=== PATIENT | female | born 1940 | race Caucasian/White ===

== ENCOUNTER 2018-11-29 23:39 | Inpatient (IN) ==
[2018-11-29] MEDS ORDERED: LOPRESSOR PO ONE (23:45)
[2018-11-30 00:51] LABS: BASO# 0.04 X1000 (0.0-0.2); BASO% 0.7 % (0.0-0.8); EOS# 0.06 X1000 (0.0-0.7); EOS% 1.1 % (0.0-10.0); HEMATOCRIT 38.7 % (37.0-47.0); HEMOGLOBIN 13.3 g/dL (12.0-16.0); IMM GRAN# 0.01 X1000 (0.0-0.04); IMM GRAN% 0.2 % (0.0-0.5); LYMPH# 1.79 X1000 (1.2-3.4); LYMPH% 32.7 % (20.5-51.1); MCH 31.6 PG (27-31); MCHC 34.4 g/dL (33-37); MCV 91.9 FL (81-99); MONO# 0.57 X1000 (0.11-0.59); MONO% 10.4 % (1.7-9.3); MPV 10.4 FL (7.4-10.4); NEUT% 54.9 % (42.2-75.2); PLT 163 X1000 (130-400); RBC 4.21 XMIL (4.2-5.4); RDW 12.9 % (11.5-14.5); WBC 5.47 X1000 (4.8-10.8)
[2018-11-30 01:02] LABS: URINE BACTERIA 1+ /HFP; URINE EPITHELIAL CELLS <10 /HPF (<10); URINE RBC <10 /HPF (<10); URINE SOURCE CLEAN CATCH
[2018-11-30 01:03] LABS: BILIRUBIN URINE NEGATIVE (NEGATIVE); CLARITY CLEAR (CLEAR); COLOR YELLOW; GLUCOSE URINE NEGATIVE (NEGATIVE); KETONE URINE TRACE mg/dL (NEGATIVE); LEUKOCYTES URINE 2+ (NEGATIVE)
[2018-11-30 01:04] LABS: UR AMPHETAMINES QUAL NONE DETECTED (NONE DETECT); UR BARBITUATES QUAL NONE DETECTED (NONE DETECT); UR BENZODIAZEPIN QUAL PRESUMPTIVE POSITIVE (NONE DETECT); UR CANNABINOIDS QUAL NONE DETECTED (NONE DETECT); UR COCAINE QUAL NONE DETECTED (NONE DETECT); UR METHADONE QUAL NONE DETECTED (NONE DETECT); UR METHAMPHETAMINE QUAL NONE DETECTED (NONE DETECT); UR OPIATES QUAL PRESUMPTIVE POSITIVE (NONE DETECT); UR OXYCODONE QUAL NONE DETECTED (NONE DETECT); UR PCP QUAL NONE DETECTED (NONE DETECT); UR PROPOXYPHENE QUAL NONE DETECTED (NONE DETECT); UR TCA QUAL PRESUMPTIVE POSITIVE (NONE DETECT)
[2018-11-30 01:26] LABS: AGAP 15; ALBUMIN 4.3 g/dL (3.5-5.0); ALKALINE PHOSPHATASE 102 U/L (32-104); BUN 5 mg/dL (8-22); CALCIUM 10.4 mg/dL (8.8-10.2); CHLORIDE 104 mmol/L (98-107); COSMO 286; CREATININE 0.6 mg/dL (0.5-0.9); ESTIMATED GFR > 60; GLUCOSE 125 mg/dL (70-104); GOT 22 U/L (10-30); GPT 16 U/L (10-36); MAGNESIUM 1.7 mg/dL (1.5-2.7); POTASSIUM 3.5 mmol/L (3.5-5.1); SODIUM 144 mmol/L (136-145); TCO2 26 mmol/L (25-35); TOTAL PROTEIN 6.9 g/dL (6.3-8.3)
[2018-11-30 01:53] LABS: BLOOD URINE NEGATIVE (NEGATIVE); NITRITE URINE NEGATIVE (NEGATIVE); PROTEIN URINE NEGATIVE (NEGATIVE); UROBILINOGEN URINE NORMAL
--- NOTE | 2018-11-30 01:57 | PROVIDER DOCUMENTATION ---
This chart was entered by Cristina Alford Scribe, acting as scribe for Jules Dowling MD. HPI-General Adult - General Chief Complaint: Altered Mental Status Stated Complaint: AMS/anxiety Time Seen by Provider: 11/29/18 23:46 Source: patient Allergies/Adverse Reactions: Patient Allergies Allergy/AdvReac Type Severity Reaction Status Date / Time ibuprofen [From Motrin IB] Allergy DIZZINESS Verified 11/29/18 23:46 pregabalin [From Lyrica] Allergy Unknown Verified 11/29/18 23:46 Home Medications: Home Medication List Medication Instructions Recorded Confirmed Last Taken Type Alprazolam [Xanax] 0.5 mg PO BID 05/07/18 10/05/18 Unknown History Metoprolol Tartrate [Lopressor] 100 mg PO BID 05/07/18 10/05/18 05/20/18 History Hydroxyzine Pamoate [Vistaril] 25 mg PO TID PRN #21 cap 10/05/18 Unknown Rx Loperamide HCl [Anti-Diarrhea] 2 mg PO DIRECTED #12 tab 10/05/18 Unknown Rx Meloxicam [Mobic] 15 mg PO DAILY 10/05/18 10/05/18 Unknown History Ondansetron Odt [Zofran 8Mg Odt] 8 mg PO Q8H PRN PRN #15 tab 10/05/18 Unknown Rx - History of Present Illness -Gen Adult Nature of Presenting Problems: Pt is 78/F presenting to ED via EMS from assisted living facility. Pt is said to have increased AMS for the past 3 days that is worsening today. Pt has some confusion but is oriented to self and place. She sts that she did take xanax daily but her DR stopped RX for the last 2 weeks. BP was 197/109 and glucose levels 143 per EMS Location of Pain/Injury: reports: none Pain Radiation: reports: no radiation Quality of Pain: reports: none Severity: reports: moderate Onset/Duration: reports: 3 days ago Timing: reports: still present, getting worse Context/Activities at Onset: reports: none Modifying Factors: improves with: nothing Associated Symptoms: reports: anxiety. denies: fever/chills, syncope, vomiting, weakness, trouble walking Similar Symptoms Previously?: No Recently seen or treated by another doctor?: No Review of Systems - Adult - REVIEW OF SYSTEMS - ADULT Constitutional: reports: no symptoms reported. denies: chills, fever Eyes: reports: no symptoms reported Ears, Nose, Mouth & Throat: reports: no symptoms reported Cardiovascular: denies: chest pain, edema Respiratory: reports: no symptoms reported. denies: cough, shortness of breath, wheezing Gastrointestinal: reports: no symptoms reported. denies: abdominal pain, diarrhea, nausea, vomiting Genitourinary: reports: no symptoms reported Musculoskeletal: reports: no symptoms reported Integumentary: reports: no symptoms reported Neurological: reports: no symptoms reported. denies: dizziness/vertigo, headache/migraines Psychiatric: reports: anxiety Endocrine: reports: no symptoms reported Hematologic/Lymphatic: reports: no symptoms reported Allergic/Immunologic: reports: no symptoms reported All Other Systems: Reviewed and Negative Past History - Adult - PAST MEDICAL HISTORY-ADULT Review of Records: reports: Old Records Reviewed, Nursing Assessment Review, Medications Reviewed, Social history reviewed & non-contributory. Major Childhood Illnesses: reports: denies history Cardiovascular: reports: denies history, HTN Respiratory: reports: denies history Gastrointestinal: reports: denies history Obstetrical/Gynecological: reports: denies history Genitourinary: reports: denies history Musculoskeletal: reports: denies history, arthritis Neurological: reports: denies history Psychiatric: reports: anxiety, depression Endocrine/Immune: reports: denies history, thyroid disorder Other Conditions: reports: denies history - PRIOR SURGERIES/PROCEDURES Surgical/Procedure History: reports: cholecystectomy, hysterectomy, orthopedic (extremity) (L arm, L shoulder) - IMMUNIZATION STATUS Childhood Immunizations: See Nurse Assessment Flu Vaccine: See Nurse Assessment - FAMILY HISTORY Family History: reviewed, not pertinent - SOCIAL HISTORY Smoking: denies, non-smoker Substance Use: none/never Alcohol Use Frequency: never Living Situation: care facility Physical Exam-General - PHYSICAL EXAM-ADULT Initial Vital Signs Reviewed: Yes - CONSTITUTIONAL General Appearance: appears well, alert, no apparent distress - EYES Eyes: PERRL/EOMI, pink conjunctivae - HEAD, EARS, NOSE, MOUTH & THROAT HENMT: normocephalic/atraumatic, moist mucous membranes, normal ENT inspection, TMs normal, pharynx normal - NECK Neck: non-tender, full range of motion, supple, normal inspection - RESPIRATORY Respiratory: chest non-tender, lungs clear, normal breath sounds - CARDIOVASCULAR Cardiovascular: regular rate, rhythm - GASTROINTESTINAL (ABDOMEN) Abdominal Exam: normal bowel sounds, non tender, soft - LYMPHATIC Lymphatic: no adenopathy - MUSCULOSKELETAL Back Exam: normal inspection, no CVA tenderness, no vertebral tenderness Extremity: normal range of motion, non-tender, normal gait, normal inspection - SKIN Integumentary: normal color, warm/dry - NEUROLOGIC Neurologic: grossly normal - PSYCHIATRIC Psych/Mental Status: normal mood/affect, normal thought content, normal thought process, other (pt is oriented to self and place but not time.). negative: o riented x 3 Progress - PLAN OF CARE/RESULTS Progress/Plan/Lab Results: Vital Signs - 8 hr 11/29/18 23:39 Temperature 98.1 F Pulse Rate 114 H Respiratory Rate 16 Blood Pressure 198/113 O2 Sat by Pulse Oximetry 96 Result Diagrams: 11/30/18 00:02 11/30/18 00:02 - EKG 1 Time of EKG reading by physician:: 23:57 EKG Read and Signed by:: Julse Dowling EKG Interpretation (*Must complete 3 of following elements*): Abnormal (Sinus tachycardia, Left bundle branch block, Abnormal ECG) Rate: 110 Rhythm: sinus tachycardia [place]: normal DC Interval: normal - CT/MRI 1 CT Study: Head Impression: Abnormal (No acute intracranial hemorrhage or process. Age-related cerebral volume loss. Bilateral white matter disease, Likely ischemic microvascular in nature) Departure - Departure Date of Disposition Decision: 11/30/18 Time of Disposition Decision: 01:56 DIAGNOSIS: Altered mental status, UTI (urinary tract infection) Disposition: ADMITTED INPATIENT 09 Certified Medical Emergency: Emergent Condition: Stable Referrals and Follow-Ups: None,PCP [Primary Care Provider] - - Critical Care Note This patient required my direct & personal management of CC.: No Attestation - Physician/ MARIA L Attestation Patient care was provided by Advanced Practice Provider:: No The physician spent face to face time with patient:: Yes Advanced Practice Provider documentation review:: Supervising physician onsite and consulted in the evaluation and care of this patient. The physician did have a face to face encounter with the patient. This chart was documented by the indicated scribe, (Cristina Alford Scribe) and accurately reflects the services I performed and decisions made by me, Jules Dowling MD, as attested by the provider's signature.
[2018-11-30] MEDS ORDERED: TYLENOL PO PRN ×2 (02:49→08:33)
[2018-11-30] MEDS ORDERED: STERILE WATER INJ. INJ PRN (04:31)
[2018-11-30] MEDS ORDERED: GEODON IM PRN (04:31)
[2018-11-30] MEDS: BENADRYL IV PRN (04:59)
[2018-11-30] MEDS: ATIVAN IV PRN (04:59)
[2018-11-30] MEDS: NS 1,000 ML IV ONE ×2 (06:34→10:57)
[2018-11-30] MEDS ORDERED: ZOFRAN IV PRN (08:33)
--- NOTE | 2018-11-30 09:06 | Diag Imaging Result Doc PS360 ---
EXAM: CHEST-PORTABLE INDICATION: AMS TECHNIQUE: One view COMPARISON: 05/21/2018 FINDINGS: The lungs are grossly clear. There is no discrete pleural fluid collection or pneumothorax. The cardiomediastinal silhouette and central vasculature are grossly unremarkable. IMPRESSION: No evidence of acute pathology by plain radiograph. Electronically signed by Stevan Zafar 11/30/2018 9:03 AM
--- NOTE | 2018-11-30 09:26 | Diag Imaging Result Doc PS360 ---
EXAM: CT HEAD W/O CONTRAST INDICATION: AMS TECHNIQUE: This exam was performed using automated exposure control, adjustment of mA or kV according to patient size, and/or use of iterative reconstruction technique. COMPARISON: None. FINDINGS: There is age-appropriate diffuse brain atrophy. There is patchy low attenuation in the periventricular and subcortical white matter suggesting moderate microangiopathy. There is no definite acute infarct given the limited sensitivity of CT versus MRI. There is no discrete intracranial mass, mass effect, or intracranial hemorrhage. The surrounding soft tissues and bony structures are essentially unremarkable. IMPRESSION: Chronic appearing white matter changes as described. No evidence of acute intracranial pathology by CT. Electronically signed by Stevan Zafar 11/30/2018 9:24 AM
[2018-11-30] MEDS ORDERED: NS 50 ML ONE (10:55)
[2018-11-30] MEDS: ROCEPHIN 1 GM in NS 50 ML IV SCH (10:55)
[2018-11-30 12:38] LABS: FREE T4 0.9 ng/dL (0.93-1.70); TSH 2.6 uIUmL (0.27-4.20)
--- NOTE | 2018-11-30 15:16 | HISTORY AND PHYSICAL ---
CHIEF COMPLAINT: Altered mental status, agitation. HISTORY OF PRESENT ILLNESS: This is a 78-year-old female with a prior history of hypertension, arthritis, thyroid disease, as well as claustrophobia and anxiety. She presented via EMS from an assisted living facility having increasing altered mental status over the past 3 days. She has had some confusion at times. She is oriented to herself and place. At times, she is combative, scratching and hitting at the nursing staff. She does pull at her lines and her IV catheters. There are no family members present, so history of the patient and recent events are taken from the old records, as well as the ER record. EMS reported that the patient has had 3 days of altered mental status. The patient told the emergency room that she was being weaned off of her Xanax, stating that her doctor stopped her prescription 2 weeks prior, although in review of her pharmacy records, she received 60.5 Xanax on November 15. She is to take these twice a day. PAST MEDICAL HISTORY: Hypertension, osteoarthritis, anxiety with claustrophobia and depression, and thyroid trouble. PAST SURGICAL HISTORY: Cholecystectomy, partial hysterectomy, neck surgery. SOCIAL HISTORY: She does live at a assisted living facility. She denies alcohol, tobacco, or illicit drug use, and none is listed on her prior visits from the records. ALLERGIES: Lyrica, which causes unknown reaction and ibuprofen, which causes dizziness. HOME MEDICATIONS: A list will be obtained by the nursing staff and, once verified, will review and restart it as appropriate. REVIEW OF SYSTEMS: Review of systems is really unable to obtain from the patient at this time as she is not consistently cooperative. PHYSICAL EXAMINATION: GENERAL: This is a 78-year-old female, who is lying in the bed in no distress. VITAL SIGNS: Blood pressure is 154/90 with a heart rate of 83, respirations 18, temperature 98.3 degrees oral with room air saturations 96 to 100 percent. EYES: Pupils are equal, round, react to light. EOMS are intact. Sclerae are anicteric. HENT: Head is normocephalic, atraumatic. Mucous membranes are moist. NECK: Supple with trachea midline. CARDIOVASCULAR: Regular rate and rhythm. S1 and S2 appreciated. She has no lower extremity edema. Peripheral pulses are palpable x4 extremities. PULMONARY: Breath sounds are clear with no increased work of breathing noted. Chest rises and falls symmetric with respiration. GASTROINTESTINAL: Abdomen is soft, nontender, nondistended with bowel sounds in all 4 quadrants. SKIN: Warm and dry with good turgor. NEUROLOGIC: She is alert. She is oriented to self and hospital, although not specific hospital nor time. She intermittently follows commands. She does move extremities at random. She does withdraw from pain. LABS: WBC is 5.4 with a hemoglobin 13.3, hematocrit 38.7, and platelets of 163. Sodium 144, potassium 3.5, BUN 5, creatinine 0.6 with a glucose of 125. Urinalysis is essentially negative. Urine drug screen is presumptive positive for opiates tricyclics and benzodiazepines. Blood culture and urine culture pending. X-RAYS: 1. Chest x-ray revealed no evidence of acute pathology by plain radiograph. 2. CT of the head revealed chronic-appearing white matter changes as described. No evidence of acute intracranial pathology by CT. There is age-appropriate diffuse brain atrophy. There is patchy low attenuation in the periventricular and subcortical white matter suggesting moderate microangiopathy. There are no definite acute infarct given the limited sensitivity of CT versus MRI. There is no discrete intracranial mass, mass effect, or intracranial hemorrhage. ASSESSMENT AND PLAN: 1. Altered mental status. We will continue with neuro checks. Cultures are pending. Restraints, as the patient was pulling out intravenous lines and discontinue monitor. These will be per protocol. 2. Gastroesophageal reflux disease. We will continue Carafate 1 gram four times daily, as well as omeprazole 40 daily. 3. History of anxiety with claustrophobia, depression. Will start her hydroxyzine and monitor the patient's mental status. 4. Vitamin D deficiency. Aware. 5. History of osteoarthritis. 6. Thyroid trouble. We will check a thyroid stimulating hormone and free T4. Repeat a complete blood count with differential, as well as a comprehensive metabolic panel in the morning. 7. Urinary tract infection. She was given Rocephin in the emergency room. We will continue this and further antibiotics will be culture driven. We will continue with intravenous gentle hydration. Further treatments pending hospital course. Dictated by MANDO Lopes for Josh Braden MD This chart was documented by, MANDO Lopes and accurately reflects the services performed, treatment plan and medical decisions as attested by the providers signature Josh Braden MD. cc: MANDO Lopes MD
[2018-11-30] MEDS: ATARAX PO SCH ×2 (17:25→18:48)
[2018-11-30] MEDS: CARAFATE LIQUID PO SCH ×2 (17:26→19:39)
[2018-11-30] MEDS: DESYREL PO SCH (21:08)
[2018-12-01] MEDS: CARAFATE LIQUID PO SCH ×5 (01:03→19:42)
--- NOTE | 2018-12-01 01:46 | HISTORY AND PHYSICAL ---
ADDENDUM: Patient seen and examined by myself. Full note dictated and discussed with nurse practitioner. Patient presented from assisted living with altered mental status. Currently is confused, disoriented. We will admit her to the hospital and continue workup. Certainly, this could be from a urinary tract infection. CT was essentially negative. We will continue to follow. cc: Josh Braden MD
[2018-12-01] MEDS: PRILOSEC PO SCH (06:00)
[2018-12-01 06:17] LABS: BASO# 0.04 X1000 (0.0-0.2); BASO% 0.7 % (0.0-0.8); EOS# 0.16 X1000 (0.0-0.7); EOS% 2.7 % (0.0-10.0); HEMATOCRIT 38.9 % (37.0-47.0); HEMOGLOBIN 12.8 g/dL (12.0-16.0); IMM GRAN# 0.01 X1000 (0.0-0.04); IMM GRAN% 0.2 % (0.0-0.5); LYMPH# 2.41 X1000 (1.2-3.4); MCH 30.5 PG (27-31); MCHC 32.9 g/dL (33-37); MCV 92.8 FL (81-99); MONO# 0.68 X1000 (0.11-0.59); MONO% 11.3 % (1.7-9.3); MPV 11.2 FL (7.4-10.4); NEUT# 2.72 X1000 (1.4-6.5); NEUT% 45.1 % (42.2-75.2); PLT 173 X1000 (130-400); RBC 4.19 XMIL (4.2-5.4); RDW 13.3 % (11.5-14.5); WBC 6.02 X1000 (4.8-10.8)
[2018-12-01 06:29] LABS: AGAP 12; ALBUMIN 3.8 g/dL (3.5-5.0); ALKALINE PHOSPHATASE 88 U/L (32-104); BUN 5 mg/dL (8-22); CALCIUM 9.7 mg/dL (8.8-10.2); CHLORIDE 110 mmol/L (98-107); COSMO 287; CREATININE 0.6 mg/dL (0.5-0.9); ESTIMATED GFR > 60; GLUCOSE 121 mg/dL (70-104); GOT 21 U/L (10-30); GPT 13 U/L (10-36); POTASSIUM 3.4 mmol/L (3.5-5.1); SODIUM 145 mmol/L (136-145); TCO2 24 mmol/L (25-35); TOTAL PROTEIN 6.3 g/dL (6.3-8.3)
[2018-12-01] MEDS: ATARAX PO SCH ×4 (09:39→17:26)
[2018-12-01] MEDS: ROCEPHIN 1 GM in NS 50 ML IV SCH (09:39)
--- NOTE | 2018-12-01 15:49 | PROGRESS NOTE ---
DATE: 12/01/2018 SUBJECTIVE: Patient is much more awake, alert this morning. She states she has no complaints. Notes that she does not really remember yesterday. Denies any fevers or chills. Denies any GI or issues currently. OBJECTIVE: Vital signs: Temperature 97.6, pulse 89, respiratory 20, BP 151/72. General: Patient is awake, very pleasant to talk with. She is oriented to person and place. Knows the year. She has no recall of what made her come to the hospital. She does remember being confused. HEENT: Normocephalic. Neck: Supple. CV: Regular rate. Chest: Clear, nonlabored. Abdomen: Soft, nondistended. Extremities: Moves all extremities. ASSESSMENT: 1. Acute delirium. Appears resolved, although patient does appear to have some chronic baseline dementia. 2. Reflux. 3. Presumed urinary tract infection. 4. History of anxiety and depression. PLAN: We will continue patient in the hospital today. We will continue until blood and urine cultures are negative. Hopefully home over the next few days. cc: Josh Braden MD
[2018-12-01] MEDS: DESYREL PO SCH (22:12)
[2018-12-02] MEDS ORDERED: APRESOLINE IV ONE (02:11)
[2018-12-02] MEDS: CARAFATE LIQUID PO SCH ×5 (02:12→19:25)
[2018-12-02] MEDS: BENADRYL IV PRN ×3 (03:27→23:29)
[2018-12-02] MEDS: ATIVAN IV PRN (03:28)
[2018-12-02 06:03] LABS: BASO# 0.06 X1000 (0.0-0.2); BASO% 0.6 % (0.0-0.8); EOS# 0.11 X1000 (0.0-0.7); HEMATOCRIT 44.2 % (37.0-47.0); HEMOGLOBIN 14.8 g/dL (12.0-16.0); IMM GRAN# 0.02 X1000 (0.0-0.04); IMM GRAN% 0.2 % (0.0-0.5); LYMPH# 3.81 X1000 (1.2-3.4); MCH 30.5 PG (27-31); MCHC 33.5 g/dL (33-37); MCV 90.9 FL (81-99); MONO# 1.04 X1000 (0.11-0.59); MONO% 9.8 % (1.7-9.3); NEUT# 5.53 X1000 (1.4-6.5); NEUT% 52.4 % (42.2-75.2); PLT 225 X1000 (130-400); RBC 4.86 XMIL (4.2-5.4); RDW 13.2 % (11.5-14.5); WBC 10.57 X1000 (4.8-10.8)
[2018-12-02] MEDS: PRILOSEC PO SCH (06:04)
[2018-12-02] MEDS: ROCEPHIN 1 GM in NS 50 ML IV SCH (08:38)
[2018-12-02] MEDS: ATARAX PO SCH ×5 (08:39→17:03)
--- NOTE | 2018-12-02 10:55 | EKG Report ---
Test Performed on : 11/29/2018 11:55:21 PM Test Reason : ER Blood Pressure : / mmHG Vent. Rate : 110 BPM Atrial Rate : 110 BPM P-R Int : 180 ms QRS Dur : 122 ms QT Int : 392 ms P-R-T Axes : 025 -04 146 degrees QTc Int : 530 ms Sinus tachycardia. Left bundle branch block Abnormal ECG When compared with ECG of 05-OCT-2018 15:40, (Unconfirmed) fusion complexes are no longer present Vent. rate has increased BY 41 BPM T wave inversion less evident in Inferior leads QT has lengthened Unconfirmed Result
[2018-12-02] MEDS: LABETALOL IV PRN (13:57)
--- NOTE | 2018-12-02 14:35 | Diag Imaging Result Doc PS360 ---
EXAM: CT HEAD W/O CONTRAST HISTORY: encephalopathy TECHNIQUE: CT head without contrast COMPARISON: 11/30/2018 FINDINGS: No parenchymal hemorrhage. No epidural or subdural hematoma. No subarachnoid hemorrhage. There are mild chronic microvascular ischemic changes similar to the prior study. No mass identified on this noncontrasted exam. No hydrocephalus. No sinus opacification. IMPRESSION: No hemorrhage. Chronic microvascular ischemic changes. This exam was performed using automated exposure control, adjustment of mA or kV according to patient size, and/or use of iterative reconstruction technique. Electronically signed by Cesar Claros 12/02/2018 2:33 PM
[2018-12-02] MEDS ORDERED: LOPRESSOR PO SCH (14:45)
--- NOTE | 2018-12-02 15:13 | PROGRESS NOTE ---
DATE: 12/02/2018 SUBJECTIVE: The patient is very confused, but I am not entirely certain she is not confused because she has got some underlying dementia. She is not sure. She does realize she is in assisted living because she lives with the "girls", but apart from that she has really nonfocal exam. This afternoon she developed an episode of tachycardia and hypertension, but she has not been getting any of her regular medications, which most notably is metoprolol. OBJECTIVE: Cardiovascular: Regular rate and rhythm. Pulmonary: Bilateral breath sounds. Clear to auscultation. GI: Soft, nontender, and nondistended. Bowel sounds are positive. LABORATORY DATA: White count 10, hemoglobin and hematocrit 14 and 44, and platelets 225,000. Her TSH is normal. Her free T4 is just a hair low. She is not on any thyroid medication, and may add a little dose of Synthroid. I will hold off and repeat. ASSESSMENT AND PLAN: 1. Really not sure what is causing her confusion, but I have of a consideration that this is just progression in dementia more than any particular issue. We will observe and anticipate discharge tomorrow. If she is not improved, I think we will have to get a psychiatric evaluation which we will proceed with. 2. Hypertension. We will work on trying to get her level under control. cc: Ezequiel Anton MD
--- NOTE | 2018-12-02 15:15 | EKG Report ---
Test Performed on : 12/02/2018 1:52:20 PM Test Reason : cp Blood Pressure : / mmHG Vent. Rate : 152 BPM Atrial Rate : 152 BPM P-R Int : 112 ms QRS Dur : 122 ms QT Int : 320 ms P-R-T Axes : 003 020 175 degrees QTc Int : 508 ms Sinus tachycardia. Left bundle branch block Abnormal ECG When compared with ECG of 29-NOV-2018 23:55, (Unconfirmed) ST now depressed in Inferior leads ST now depressed in Anterior leads Unconfirmed Result
[2018-12-02] MEDS ORDERED: ATIVAN IV PRN (18:37)
[2018-12-02] MEDS: HALDOL IV PRN ×2 (18:38→23:30)
[2018-12-02] MEDS: DESYREL PO SCH (20:15)
[2018-12-03] MEDS: CARAFATE LIQUID PO SCH ×4 (03:05→19:38)
[2018-12-03] MEDS ORDERED: LABETALOL IV PRN (06:03)
[2018-12-03] MEDS ORDERED: CATAPRES-TTS-1 TD ONE (06:05)
[2018-12-03] MEDS: LABETALOL IV PRN (06:13)
[2018-12-03] MEDS: PRILOSEC PO SCH (06:16)
[2018-12-03 07:36] LABS: ALBUMIN 4.2 g/dL (3.5-5.0); DIRECT BILIRUBIN 0.2 mg/dL (0.00-0.20); TOTAL BILIRUBIN 0.8 mg/dL (0.20-1.00); TOTAL PROTEIN 6.3 g/dL (6.3-8.3)
[2018-12-03] MEDS: ROCEPHIN 1 GM in NS 50 ML IV SCH (11:04)
[2018-12-03] MEDS: MOBIC PO SCH (11:07)
[2018-12-03] MEDS: TOPROL XL PO SCH (11:07)
[2018-12-03] MEDS: ATARAX PO SCH ×3 (11:07→19:05)
[2018-12-03] MEDS ORDERED: ATIVAN IM PRN (12:26)
[2018-12-03] MEDS ORDERED: HALDOL IM PRN (12:27)
[2018-12-03] MEDS ORDERED: ZOFRAN IV PRN (12:27)
[2018-12-03] MEDS ORDERED: ZOFRAN ODT PO PRN (12:29)
--- NOTE | 2018-12-03 12:49 | PROGRESS NOTE ---
DATE: 12/03/2018 SUBJECTIVE: The patient has no major complaints. OBJECTIVE: Vital Signs: Blood pressure is 197/88, heart rate of 115, respiratory rate 18, temperature 97.5 degrees, satting 98% on room air. Cardiovascular: Regular rate and rhythm. Pulmonary: Bilateral breath sounds. Clear to auscultation. GI: Soft, nontender, nondistended. Bowel sounds were positive. LABORATORY DATA: I do not have any new data today, except hepatic function is normal. B 12 is normal. Vitamin D is pending. RPR is nonreactive. PROBLEM LIST: 1. Encephalopathy, uncertain what her baseline is, it is unclear. I think she has got underlying dementia. There certainly could be a component of withdrawal, but it is unclear to me. I think she was back on her medication before this was discontinued, so I do not think that this is truly withdrawal. She seems better today, but then last night she describes that she had wires placed in her body and she would refuse to go back to her room. She is very confused, very agitated, with clear-cut behavioral disturbance, and I think she has got some underlying dementia, but [facility] did not feel she qualified for inpatient treatment. 2. She does not appear to have any major medical issues, but she does have uncontrolled hypertension. We will control her hypertension currently. I am going to start her on some Seroquel at night to help with agitation. I have initiated Norvasc. She is already on Toprol. DISPOSITION: She is not physically that weak. We will get a PT evaluation, but I do not know if she is stable enough to live on her own at this point because she gets very agitated. So, I am not sure what our discharge plan is. We will have to discuss with secondary social studies teacher and family and see what available options we have. cc: Ezequiel Anton MD
[2018-12-03] MEDS: NORVASC PO SCH (14:27)
[2018-12-03 14:57] LABS: VITAMIN D 25 HYDROXY 19.8 NG/DL
[2018-12-03] MEDS ORDERED: SEROQUEL PO SCH (21:00)
[2018-12-03] MEDS: DESYREL PO SCH (21:26)
[2018-12-04] MEDS: CARAFATE LIQUID PO SCH ×3 (01:06→14:01)
[2018-12-04] MEDS: PRILOSEC PO SCH (06:03)
[2018-12-04] MEDS: MOBIC PO SCH (09:25)
[2018-12-04] MEDS: NORVASC PO SCH (09:25)
[2018-12-04] MEDS: TOPROL XL PO SCH (09:25)
[2018-12-04] MEDS: ATARAX PO SCH ×3 (09:25→17:37)
--- NOTE | 2018-12-04 15:20 | PROGRESS NOTE ---
DATE: 12/04/2018 SUBJECTIVE: 1. She has not having any further behavioral issues. She seems alert, oriented today. Documentation we found, though, suggests that she does have Alzheimer's dementia. This was noted by Dr. Do about a year ago, and she had behavioral disturbance then, so I do think she has underlying dementia, although she is fairly highly functioning. 2. She is probably very compensated. That being said, she seems to be alert, oriented. She has not had any further behavioral issues. OBJECTIVE: Blood pressure 146/72, heart rate 76, respiratory rate 18, temperature 98.2 degrees, 96% on room air. She seems to be doing okay. Nonfocal neurological exam. Tonio Givens is going to re-evaluate her, but I think she is not going to qualify since she is improved. I did start her on some Seroquel and Aricept, which I would add those medications as an outpatient. I do not recommend that she continue Xanax because I think she has issues with overtaking that medicine, and it may be causing worsening confusion. We will initiate Seroquel at night and Aricept daily, and I will anticipate discharge if she does not qualify for Geriatric Psychiatric, which I do not think she will, and we will set her up with outpatient psychiatric. Anticipate discharge hopefully later today pending Tonio Givens consult. cc: Ezequiel Anton MD
[2018-12-04 18:30] VITALS: BP 157/72
[2018-12-04] MEDS ORDERED: ARICEPT PO SCH (21:00)
--- NOTE | 2018-12-04 22:03 | DISCHARGE SUMMARY ---
ADMISSION DATE: 11/30/2018 DISCHARGE DATE: 12/04/2018 PRIMARY CARE PHYSICIAN: Listed as none. ADMISSION DIAGNOSES: 1. Altered mental status. 2. Gastroesophageal reflux disease. 3. History of anxiety with claustrophobia and depression. 4. Vitamin D deficiency. 5. History of osteoarthritis. 6. Urinary tract infection. DISCHARGE DIAGNOSES: 1. Altered mental status with underlying dementia with behavioral disturbances. 2. Urinary tract infection with urine culture with no growth. 3. Gastroesophageal reflux disease. 4. History of anxiety with claustrophobia and depression. SUMMARY OF FINDINGS: This is a 78-year-old female who presented via EMS from an assisted living facility, having increased altered mental status for 3 days. At times had been combative, scratching and hitting at the nursing staff, with increased confusion. The patient told the emergency room that she was being weaned off her Xanax, stating that her doctor stopped her prescription 2 weeks prior, although in review of her pharmacy records, she received sixty 0.5 mg Xanax on November and was taking these twice daily. She is was placed on IV antibiotics for her urinary tract infection, but again her culture grew out no growth. We did consult [facility]. At first she was denied, but they have reevaluated her and have agreed to take her for inpatient psychiatric treatment, so she is being discharged to the [facility]. She will be on donepezil 5 mg p.o. at bedtime #30 with no refills, quetiapine 25 mg p.o. at bedtime #30 with 1 refill, and further orders after her psychiatric evaluation. Dictated by MANDO Carreon for Ezequiel Anton MD cc: MANDO Carreon MD Nidhi Jindal, MD
== END 2018-12-04 20:25 | DRG 57 ==
LOC: P.ED 23:39 → SUATTDRO 11-30 02:40 → P.MEDSURG 11-30 02:40
PROVIDERS: ATTEND Internal Medicine
CPT/HCPCS: 36415; 70450; 71010; 71045; 80053; 80076; 80104; 80301; 80305; 80307; 80320; 81001; 82055; 82140; 82306; 82607; 82746; 82948; 83605; 83735; 84439; 84443; 84484; 85025; 86140; 86592; 87040; 87088; 93005; 97163; 99285; A9270; G0431; G0434; G0477; G0480; G6040; J0360; J0696; J1200; J1630; J2060; J3486; J7030; XXXXX

== ENCOUNTER 2019-01-04 15:58 | Inpatient (IN) ==
[2019-01-04] MEDS ORDERED: SODIUM CHLORIDE 0.9% INJ ONE (16:44)
[2019-01-04] MEDS ORDERED: PHENERGAN IV ONE (16:44)
[2019-01-04] MEDS ORDERED: NS 1,000 ML IV ONE ×2 (16:44→22:27)
[2019-01-04 17:22] LABS: BASO# 0.02 X1000 (0.0-0.2); BASO% 0.2 % (0.0-0.8); EOS# 0.01 X1000 (0.0-0.7); EOS% 0.1 % (0.0-10.0); HEMATOCRIT 39.5 % (37.0-47.0); HEMOGLOBIN 13.9 g/dL (12.0-16.0); LYMPH# 1.53 X1000 (1.2-3.4); LYMPH% 18.1 % (20.5-51.1); MCH 30.9 PG (27-31); MCHC 35.2 g/dL (33-37); MCV 87.8 FL (81-99); MONO# 0.62 X1000 (0.11-0.59); MONO% 7.3 % (1.7-9.3); MPV 11.1 FL (7.4-10.4); NEUT# 6.29 X1000 (1.4-6.5); NEUT% 74.3 % (42.2-75.2); PLT 212 X1000 (130-400); RDW 12.3 % (11.5-14.5); WBC 8.47 X1000 (4.8-10.8)
[2019-01-04 17:47] LABS: ESTIMATED GFR > 60
[2019-01-04 17:48] LABS: AGAP 15; ALB/GLOB RATIO 1.8; ALBUMIN 4.4 g/dL (3.5-5.0); ALKALINE PHOSPHATASE 96 U/L (32-104); AMYLASE 41 U/L (20-200); BUN 11 mg/dL (8-22); CALCIUM 10.7 mg/dL (8.8-10.2); CHLORIDE 89 mmol/L (98-107); COSMO 256; CREATININE 0.6 mg/dL (0.5-0.9); GLUCOSE 126 mg/dL (70-104); GOT 16 U/L (10-30); GPT 9 U/L (10-36); LIPASE 20 U/L (13-60); POTASSIUM 3.2 mmol/L (3.5-5.1); SODIUM 127 mmol/L (136-145); TCO2 23 mmol/L (25-35); TOTAL BILIRUBIN 0.97 mg/dL (0.20-1.00); TOTAL PROTEIN 6.9 g/dL (6.3-8.3)
[2019-01-04] MEDS ORDERED: ZOFRAN IV ONE (20:21)
--- NOTE | 2019-01-04 20:48 | HISTORY AND PHYSICAL ---
ADDENDUM: This is an addendum to history and physical dated 01/04/2019. The patient complains of persistent subacute diarrhea with persistent nausea and vomiting. This is her third visit to the hospital and during this month. She states that she has a lot of diarrhea which wakes her up at night, and persistent vomiting regardless of whether she eats or not. When I asked her about medication, she has been prescribed Aricept early this month before the onset of all these symptoms. She said she was prescribed it because they told her she had "dementia," which she disputes. Other than that, the patient does admit to some very vague abdominal pain, but no fever, chills or genitourinary complaints. CT scan done today is grossly normal, with no acute findings. My recommendations for this patient would be to discontinue all unnecessary medications, most especially Aricept which can cause diarrhea in and of itself, and see if her diarrhea resolves. I do not have an official medication reconciliation list, but I would surmise that she should be maintained on the ones I see here, i.e., Xanax, Norvasc, Toprol and omeprazole. We will withhold the rest of the medications to see if her symptoms improve. If they do improve, then we can introduce one medication at a time to see if and when her diarrhea or nausea and vomiting recurs. cc: Rick Ramos MD
--- NOTE | 2019-01-04 20:57 | HISTORY AND PHYSICAL ---
PRIMARY CARE PROVIDERS: Kaila Chandler. CHIEF COMPLAINT: Nausea, vomiting and diarrhea. HPI: Ms. Macdonald is a 78-year-old female who carries past medical history of hypertension, osteoarthritis, anxiety with claustrophobia, depression and thyroid issues who reports that she has been to the ED for the past 3 days for nausea, vomiting, and diarrhea. On the she had abdominal and pelvis CT that showed trace nonspecific free fluid in the pelvis, mild to moderate sigmoid colonic diverticulosis but no diverticulitis. Reported to the ED again today with intractable nausea, vomiting and diarrhea with complaints of abdominal cramping in the right upper quadrant that has moved down to her right lower quadrant. She states she has felt sluggish. She has thrown up 4 times today and had 6 episodes of diarrhea. There was no blood in the diarrhea. She denies being around any sick contacts or eating anything out of the ordinary and has really not had an appetite over the last few days. She did have electrolyte abnormalities with mild hyponatremia and mild hyperkalemia with a normal amylase and lipase. We will admit her overnight for observation for gastroenteritis viral, give her IV fluids and replenish her potassium and keep an eye on her electrolytes and provide her with antiemetics. She denies any chest pain, fever, chills, cough, headache, palpitations. PAST MEDICAL HISTORY: 1. Hypertension. 2. Osteoarthritis. 3. Anxiety with claustrophobia and depression. 4. Thyroid issues. PAST SURGICAL HISTORY: 1. Cholecystectomy. 2. Partial hysterectomy. 3. Neck surgery. SOCIAL HISTORY: She lives at [facility]. No alcohol, tobacco, or illicit drug use. ALLERGIES: To Lyrica, ibuprofen. HOME MEDICATIONS: Have not been verified. REVIEW OF SYSTEMS: A 14 point review of systems completely negative except for those mentioned in HPI. PHYSICAL EXAMINATION: VITAL SIGNS: Temperature is 98.5 degrees, heart rate 65, respirations 16, blood pressure is 199/81, O2 is 99% on room air. GENERAL: Ms. Macdonald is a 78-year-old female who is sitting up on the stretcher in no acute distress who is not ill-appearing. HEENT: Atraumatic, normocephalic. ABE. NECK: Supple. Trachea midline. CARDIOVASCULAR: S1, S2 appreciated. No murmurs, gallops, rubs noted. RESPIRATORY: Lung sounds clear bilaterally. GI: Soft, nontender, nondistended. Positive bowel sounds 4 quads. SKIN: Was warm, dry and intact. EXTREMITIES: No lower extremity edema. Bilateral pedal pulses are palpable. NEURO: She is alert, oriented, answered questions appropriately. Follow commands. DIAGNOSTIC DATA: None from today however on 01/03/[address] that showed trace nonspecific free fluid in the pelvis, mild to moderate sigmoid colonic diverticulosis but no definite sign of diverticulitis and a chest x-ray done on 01/01 that showed no acute disease or change from prior. LABORATORY DATA: White count 8, hemoglobin and hematocrit 13 and 39, platelet count is 212,000. Sodium 127, potassium 3.2, chloride 89, carbon dioxide 23, BUN 11, creatinine 0.6, blood glucose is 126, magnesium 1.7, AST 16, ALT 9, alk phos 96, amylase 41, lipase 20. ASSESSMENT AND PLAN: 1. Viral Gastroenteritis with intractable nausea, vomiting and diarrhea. The patient has been to the emergency department for 3 days in a row now. She denies being around any sick contacts or eating any food out of the ordinary or food she thought was bad. We will continue with IV hydration, place her in observation status, replenish her electrolytes, initiate her on a clear liquid diet and advanced as tolerated, will check stool studies. 2. Electrolyte imbalances with hyponatremia and hypokalemia. We will replenish per protocol. 3. Hypertension. Will continue p.o. medications when verified. 4. Osteoarthritis. 5. Anxiety with claustrophobia. 6. Depression. 7. Further recommendation to follow physician evaluation, laboratory and diagnostic data. Dictated by MANDO Roberson for Rick Ramos MD cc: Kaila LUIS
[2019-01-04] MEDS ORDERED: ZOFRAN IV PRN (22:27)
[2019-01-04] MEDS ORDERED: POTASSIUM CHLORIDE 20 MEQ/SWI 20 MEQ/100 ML IVPB IV ONE (22:27)
[2019-01-04] MEDS: HEPARIN SUBQ SCH (23:09)
[2019-01-04] MEDS ORDERED: BENTYL PO PRN (23:42)
[2019-01-05] MEDS: ULTRAM PO SCH ×2 (00:05→20:38)
[2019-01-05] MEDS: XANAX PO SCH ×3 (00:06→20:37)
[2019-01-05] MEDS: LOPRESSOR PO SCH ×3 (00:06→20:38)
[2019-01-05 05:33] LABS: BASO# 0.04 X1000 (0.0-0.2); BASO% 0.5 % (0.0-0.8); EOS# 0.06 X1000 (0.0-0.7); EOS% 0.8 % (0.0-10.0); HEMATOCRIT 36.6 % (37.0-47.0); HEMOGLOBIN 12.6 g/dL (12.0-16.0); LYMPH# 3.14 X1000 (1.2-3.4); LYMPH% 39.3 % (20.5-51.1); MCH 30.8 PG (27-31); MCHC 34.4 g/dL (33-37); MCV 89.5 FL (81-99); MONO# 0.96 X1000 (0.11-0.59); MPV 10.9 FL (7.4-10.4); NEUT% 47.4 % (42.2-75.2); PLT 200 X1000 (130-400); RBC 4.09 XMIL (4.2-5.4); RDW 12.7 % (11.5-14.5)
[2019-01-05 06:35] LABS: AGAP 10; ALB/GLOB RATIO 1.8; ALBUMIN 3.8 g/dL (3.5-5.0); ALKALINE PHOSPHATASE 86 U/L (32-104); BUN 7 mg/dL (8-22); CALCIUM 10.2 mg/dL (8.8-10.2); CHLORIDE 103 mmol/L (98-107); COSMO 274; CREATININE 0.7 mg/dL (0.5-0.9); ESTIMATED GFR > 60; GLUCOSE 98 mg/dL (70-104); GOT 13 U/L (10-30); GPT 8 U/L (10-36); MAGNESIUM 1.7 mg/dL (1.5-2.7); POTASSIUM 3.4 mmol/L (3.5-5.1); SODIUM 138 mmol/L (136-145); TCO2 25 mmol/L (25-35); TOTAL BILIRUBIN 0.82 mg/dL (0.20-1.00); TOTAL PROTEIN 5.9 g/dL (6.3-8.3)
[2019-01-05 06:50] LABS: URINE SOURCE CLEAN CATCH
[2019-01-05 06:53] LABS: BILIRUBIN URINE NEGATIVE (NEGATIVE); BLOOD URINE NEGATIVE (NEGATIVE); COLOR STRAW; GLUCOSE URINE NEGATIVE (NEGATIVE); KETONE URINE TRACE mg/dL (NEGATIVE); LEUKOCYTES URINE TRACE (NEGATIVE); NITRITE URINE NEGATIVE (NEGATIVE); PH URINE 6.5; PROTEIN URINE NEGATIVE (NEGATIVE); TURBIDITY URINE CLEAR (CLEAR); UR EPITHELIAL CELLS <10 /HPF (<10); URINE BACTERIA NEGATIVE /HPF; URINE RBC <10 /HPF (<10); URINE WBC <10 /HPF (<10); UROBILINOGEN URINE NORMAL (NORMAL)
[2019-01-05] MEDS: PRILOSEC PO SCH (10:31)
[2019-01-05] MEDS: HEPARIN SUBQ SCH (10:31)
[2019-01-05] MEDS: CYMBALTA PO SCH (10:32)
[2019-01-05] MEDS ORDERED: MAGNESIUM SULFATE 2 GM/S.W.I. 2 GM/50 ML IVPB IV ONE (11:37)
--- NOTE | 2019-01-05 12:00 | PROGRESS NOTE ---
DATE: 01/05/2019 SUBJECTIVE: This morning, Ms. Macdonald refers to be doing a lot better. She says she has not had any more vomiting and no diarrhea. She feels a whole lot better than the 3 days prior. OBJECTIVE: Vital Signs: Blood pressure is 156/76, pulse is 61, respirations are 18, temperature is 98.4 degrees, patient is saturating 97% on room air. General Examination: Ms. Macdonald is a 78- year-old, female. She is in bed. She is not in any cardiopulmonary distress. HEENT: Mucosa is slightly dry. Anicteric. Acyanotic. Neck: Supple. Chest: Clear to auscultation. No crepitations. No rhonchi. Cardiovascular: Regular rate and rhythm. Abdomen: Soft, nontender. Bowel sounds are present, slightly hyperactive. No hepatosplenomegaly. Extremities: No pedal edema. Distal pulses present. FREIGHT BRAKE OPERATOR: Patient is awake, alert, and oriented. There is no focal neurological deficit. Laboratory Data: CBC has been reviewed and is completely unremarkable. Chemistry also shows a potassium of 3.4. Rest of chemistry is unremarkable. Phosphorus is 1.6. A CT scan of the abdomen and pelvis which was done on January 03 shows trace nonspecific free fluid in the pelvis. There was also [id number] sigmoid colon diverticulosis but no definite sign of diverticulitis. So far, the C. difficile has been negative. Stool culture on the showed no enteric pathogen. There was no WBC in the stool. A repeat stool WBC today continues to be negative. ASSESSMENT: 1. Nausea and vomiting with diarrhea, consistent with viral gastroenteritis. We are going to continue with symptomatic management. 2. Clinical volume depletion. We will continue with intravenous fluids. 3. Electrolyte abnormality including hypokalemia, hypophosphatemia, likely due to gastrointestinal loss. We will continue to replenish these. 4. History of hypertension, currently stable. 5. Depression and anxiety disorder, stable. PLAN: In general, Ms. Macdonald refers to be doing a whole lot better today. Her electrolytes seem to be getting better also this morning. We are going to advance her diet to a GI soft. Continue with the IV fluids, replenish all her electrolyte abnormalities, and wait for the other stool studies that have been sent. I think Ms. Macdonald can potentially be discharged tomorrow and let her follow up with GI for outpatient evaluation if needed and also to review the other labs that are still pending. cc: Shemar Klein MD
[2019-01-05] MEDS: D5 1/2 NS + KCL 10 MEQ 1,000 ML IV SCH (12:21)
[2019-01-05] MEDS ORDERED: POTASSIUM PHOSPHATE 30 MEQ in NS 250 ML IV ONE (12:30)
[2019-01-05] MEDS: ARICEPT PO SCH (20:39)
[2019-01-06] MEDS: HEPARIN SUBQ SCH ×3 (00:09→21:28)
[2019-01-06] MEDS: NEURONTIN PO SCH ×4 (00:09→21:19)
[2019-01-06] MEDS: D5 1/2 NS + KCL 10 MEQ 1,000 ML IV SCH ×4 (00:09→23:19)
[2019-01-06] MEDS: APRESOLINE IV PRN ×2 (04:19→21:17)
[2019-01-06 08:44] LABS: MAGNESIUM 2.2 mg/dL (1.5-2.7); PHOSPHORUS 2.5 mg/dL (2.7-4.5)
[2019-01-06 08:55] LABS: AGAP 10; BUN 3 mg/dL (8-22); CHLORIDE 111 mmol/L (98-107); COSMO 288; CREATININE 0.6 mg/dL (0.5-0.9); ESTIMATED GFR > 60; GLUCOSE 120 mg/dL (70-104); POTASSIUM 3.5 mmol/L (3.5-5.1); SODIUM 146 mmol/L (136-145); TCO2 25 mmol/L (25-35)
[2019-01-06] MEDS: TYLENOL PO PRN (09:35)
[2019-01-06] MEDS: CYMBALTA PO SCH ×2 (09:36→15:03)
[2019-01-06] MEDS: XANAX PO SCH ×2 (09:36→21:16)
[2019-01-06] MEDS: LOPRESSOR PO SCH ×2 (09:36→21:17)
[2019-01-06] MEDS: PRILOSEC PO SCH (09:36)
[2019-01-06] MEDS ORDERED: SODIUM PHOSPHATE 35 MMOL in NS 250 ML IV ONE (14:45)
--- NOTE | 2019-01-06 15:52 | PROGRESS NOTE ---
DATE: 01/06/2019 SUBJECTIVE: Patient reports feeling very weak, but no longer dizzy. Denies any other symptoms. OBJECTIVE: Vital Signs: Temperature degrees, heart rate 61, respiratory rate 16, blood pressure 164/51, O2 saturation 96% on room air. General examination: This is a 78-year-old female, lying in bed, in no acute distress. Cardiovascular: S1, S2 heard. No murmurs, gallops, or rubs. Regular rate and rhythm. Respiratory: Clear bilaterally to auscultation. No work of breathing or using accessory muscles. Abdomen: Soft. Nontender to palpation. Bowel sounds present. No organomegaly. Extremities: No clubbing, cyanosis, or edema. Peripheral pulses present in both legs. Neurological: Patient alert and oriented x3. Moves all 4 extremities. LABORATORY DATA: BMP shows sodium 146, potassium 3.5, phosphorus 2.5. ASSESSMENT AND PLAN: 1. Viral gastroenteritis. Patient is not feeling nauseated anymore. At this point, we will continue with IV fluids. 2. Electrolyte abnormalities. Potassium is back to normal, but phosphorus is still low. We are going to replete that today, and we are going to check phosphorus tomorrow. 3. Hypertension. Blood pressure is under control. We will continue with the same management. 4. Anxiety/depressive disorder, stable. PLAN: At this point, the patient prefers to be kept one more day in the hospital. We are going to check electrolytes again, and if those are normal, patient can be discharged tomorrow. cc: Rafael Justin MD
[2019-01-06] MEDS: ULTRAM PO SCH (21:16)
[2019-01-06] MEDS: ARICEPT PO SCH (21:17)
[2019-01-07] MEDS: TYLENOL PO PRN ×2 (00:40→23:14)
[2019-01-07 02:03] LABS: HEMATOCRIT 37.8 % (37.0-47.0); HEMOGLOBIN 12.6 g/dL (12.0-16.0)
[2019-01-07 07:22] LABS: BASO# 0.07 X1000 (0.0-0.2); BASO% 1.1 % (0.0-0.8); EOS# 0.34 X1000 (0.0-0.7); EOS% 5.3 % (0.0-10.0); HEMATOCRIT 36.7 % (37.0-47.0); HEMOGLOBIN 12.2 g/dL (12.0-16.0); LYMPH# 2.93 X1000 (1.2-3.4); LYMPH% 45.3 % (20.5-51.1); MCH 30.7 PG (27-31); MCHC 33.2 g/dL (33-37); MCV 92.4 FL (81-99); MONO# 0.72 X1000 (0.11-0.59); MONO% 11.1 % (1.7-9.3); MPV 11.2 FL (7.4-10.4); NEUT# 2.41 X1000 (1.4-6.5); NEUT% 37.2 % (42.2-75.2); PLT 194 X1000 (130-400); RBC 3.97 XMIL (4.2-5.4); RDW 13.4 % (11.5-14.5); WBC 6.47 X1000 (4.8-10.8)
[2019-01-07 07:42] LABS: AGAP 10; BUN 1 mg/dL (8-22); CALCIUM 9.5 mg/dL (8.8-10.2); CHLORIDE 108 mmol/L (98-107); COSMO 285; CREATININE 0.7 mg/dL (0.5-0.9); ESTIMATED GFR > 60; GLUCOSE 108 mg/dL (70-104); PHOSPHORUS 3.5 mg/dL (2.7-4.5); POTASSIUM 3.4 mmol/L (3.5-5.1); SODIUM 145 mmol/L (136-145); TCO2 27 mmol/L (25-35)
[2019-01-07] MEDS: LOPRESSOR PO SCH ×2 (09:39→20:06)
[2019-01-07] MEDS: CYMBALTA PO SCH (09:39)
[2019-01-07] MEDS: NEURONTIN PO SCH ×2 (09:39→20:06)
[2019-01-07] MEDS: PRILOSEC PO SCH (09:39)
[2019-01-07] MEDS: HEPARIN SUBQ SCH ×3 (09:39→21:50)
[2019-01-07] MEDS: XANAX PO SCH ×2 (09:39→20:06)
[2019-01-07] MEDS: D5 1/2 NS + KCL 10 MEQ 1,000 ML IV SCH ×4 (09:40→22:20)
--- NOTE | 2019-01-07 12:43 | PROGRESS NOTE ---
DATE: 01/07/2019 SUBJECTIVE: This morning, Ms. Macdonald refers to be feeling very tired and low. She said she also had some bowel movement yesterday which was bloody but that has not happened anymore. She denies any more diarrhea. OBJECTIVE: Vital Signs: Blood pressure is 183/66, pulse is 56, respirations are 18, temperature is 97.6 degrees, patient is saturating 100% on room air. General Examination: Ms. Macdonald is a 78- year-old, female. She is in bed. No distress. HEENT: Mucosa is pink and moist. Anicteric. Acyanotic. Neck: Supple. Chest: Good air entry bilaterally. There were no crepitations. No rhonchi. Cardiovascular: Regular rate and rhythm. No murmurs, no rubs, no gallops. GI: Abdomen is soft. Bowel sounds present. No hepatosplenomegaly. Extremities: No pedal edema. Distal pulses are present. PINION AND WHEEL TRUER: The patient is awake, alert, and oriented. No focal neurological deficit. Laboratory Data: WBC is 6.47, hemoglobin is 12.6, platelet count of 194,000. Chemistry is also reviewed, completely normal. Sodium is 145, potassium is 3.4, chloride is 108, bicarb is 27. The patient's phosphorus is up to 3.5. So far, microbiology data has been unremarkable. Urine showed no pathogen. CURRENT MEDICATIONS: Have also been reviewed and unremarkable. ASSESSMENT: 1. Viral gastroenteritis on presentation, resolved. 2. Clinical volume depletion, improved. 3. Electrolyte abnormalities (hypokalemia, hypophosphatemia), improved. 4. History of hypertension, currently controlled. 5. Depression and anxiety disorder. Patient is on medications at home which have been restarted. 6. Generalized weakness. Unsure if this is all related to the ongoing electro- mineral abnormality or there is something else. I have encouraged Ms. Macdonald to work with physical therapy today and we will re-evaluate her in the morning. We will also start her on a healthy heart diet today. cc: Shemar Klein MD [facility]
[2019-01-07] MEDS: ARICEPT PO SCH (20:06)
[2019-01-07] MEDS: ULTRAM PO SCH (20:06)
[2019-01-07] MEDS: APRESOLINE IV PRN (20:18)
[2019-01-08] MEDS: APRESOLINE IV PRN ×2 (03:53→20:56)
[2019-01-08 08:09] LABS: AGAP 10; BUN 2 mg/dL (8-22); CALCIUM 9.9 mg/dL (8.8-10.2); CHLORIDE 106 mmol/L (98-107); COSMO 280; CREATININE 0.6 mg/dL (0.5-0.9); ESTIMATED GFR > 60; GLUCOSE 119 mg/dL (70-104); MAGNESIUM 1.8 mg/dL (1.5-2.7); PHOSPHORUS 2.5 mg/dL (2.7-4.5); POTASSIUM 3.6 mmol/L (3.5-5.1); SODIUM 142 mmol/L (136-145); TCO2 26 mmol/L (25-35)
[2019-01-08] MEDS: D5 1/2 NS + KCL 10 MEQ 1,000 ML IV SCH ×2 (08:27→20:14)
[2019-01-08] MEDS: PRILOSEC PO SCH (08:29)
[2019-01-08] MEDS: CYMBALTA PO SCH (08:29)
[2019-01-08] MEDS: TYLENOL PO PRN (08:29)
[2019-01-08] MEDS: NEURONTIN PO SCH ×2 (08:29→20:16)
[2019-01-08] MEDS: LOPRESSOR PO SCH ×2 (08:29→20:16)
[2019-01-08] MEDS: XANAX PO SCH ×2 (08:30→20:16)
[2019-01-08] MEDS: HEPARIN SUBQ SCH ×3 (11:00→21:41)
--- NOTE | 2019-01-08 14:37 | PROGRESS NOTE ---
DATE: 01/08/2019 SUBJECTIVE: This morning Ms. Macdonald refers to be doing a lot better. She says she had a few bowel movements, but they were a little more formed and there was not any blood. OBJECTIVE: Vital signs: Blood pressure is 188/74, pulse is 61, respirations 17 and temperature 97.5 degrees. The patient is saturating 100% on room air. General: Ms. Macdonald is a 78-year-old female. She was sitting up in the chair, no distress. HEENT: Mucosa is pink and moist. Anicteric. Acyanotic. Neck: Supple. Chest: Clear to auscultation. No crepitations. No rhonchi. Cardiovascular: Regular rate and rhythm. Abdomen: Soft, nontender. Bowel sounds are present. Extremities: No pedal edema. MEDICAL OFFICE SUPERVISOR: Patient is awake, alert, and oriented. There was no focal neurological deficit. LABORATORY DATA: CBC is completely normal. Chemistry is also reviewed and is normal. Phosphorus is slightly down to 2.5. We will continue to replace this. CURRENT MEDICATIONS: The patient's current medications have all been reviewed. There is no change. ASSESSMENT: 1. Viral gastroenteritis on presentation, resolved. 2. Clinical volume depletion, improved. 3. Electrolyte abnormalities including hypokalemia and hypophosphatemia, improved. 4. Hypertension. We will continue to titrate her medications 5. Depression and anxiety disorder. Patient is on home medications. 6. Generalized weakness. The patient is feeling a whole lot better this morning. We are going to continue with physical therapy. PLAN: In general, Ms. Macdonald is doing a lot better. Has not had any more diarrhea and no rectal bleed. We are going to advance her diet to GI soft diet. If she is able to tolerate this, we will discharge her tomorrow morning. cc: Shemar Klein MD
[2019-01-08] MEDS: ULTRAM PO SCH (20:15)
[2019-01-08] MEDS: ARICEPT PO SCH (20:16)
[2019-01-09] MEDS: D5 1/2 NS + KCL 10 MEQ 1,000 ML IV SCH (07:00)
[2019-01-09] MEDS: NEURONTIN PO SCH (09:49)
[2019-01-09] MEDS: XANAX PO SCH (09:49)
[2019-01-09] MEDS: PRILOSEC PO SCH (09:49)
[2019-01-09] MEDS: LOPRESSOR PO SCH (09:50)
[2019-01-09] MEDS: CYMBALTA PO SCH (09:50)
[2019-01-09] MEDS: HEPARIN SUBQ SCH (09:51)
[2019-01-09] MEDS: TYLENOL PO PRN (10:08)
[2019-01-09] MEDS ORDERED: PNEUMOVAX 23 IM ONE (11:45)
[2019-01-09 11:55] VITALS: BP 171/58
--- NOTE | 2019-01-10 09:34 | DISCHARGE SUMMARY ---
ADMISSION DATE: 01/04/2019 DISCHARGE DATE: 01/09/2019 DISPOSITION: Back to the independent living. CONSULTATION DURING THIS ADMISSION: None. IMAGING STUDIES: Imaging studies of significance none. FOLLOWUP: Dr. Kaila Justin. ADMISSION DIAGNOSES: 1. Viral gastroenteritis. 2. Electrolyte imbalance. 3. Osteoarthritis. DIAGNOSES AT THE TIME OF DISCHARGE: 1. Viral gastroenteritis with intractable nausea, vomiting and diarrhea improved. 2. Clinical volume depletion improved. 3. Electrolyte abnormality including hypokalemia and hypophosphatemia, resolved. 4. Hypertension controlled. 5. Depression and anxiety disorder. Patient is on medications. 6. Generalized weakness. The patient was evaluated by physical therapy. DISCHARGE MEDICATIONS: 1. Metoprolol 100 mg b.i.d. 2. Cymbalta 30 mg daily. 3. Gabapentin 100 mg b.i.d. 4. Ergocalciferol 50,000 units every 7 days. 5. Tramadol p.r.n. 6. Prednisone 0.5 b.i.d. 7. Donepezil 10 mg at bedtime. 8. Bentyl 10 mg p.o. 3 times per day. PRESENTING COMPLAINT: Nausea, vomiting, diarrhea. HISTORY OF PRESENTING COMPLAINT: Ms Macdonald is a 78-year-old female with history of hypertension, osteoarthritis, and anxiety/ depression disorder, came to the emergency department because of intractable nausea, vomiting and diarrhea. The patient was found to have gastroenteritis. She was subsequently admitted for further medical care. HOSPITAL COURSE: Ms Macdonald was admitted to the medical floor. She was adequately fluid resuscitated. Cultures were done including stool cultures, which all came back unremarkable. Urine culture was also unremarkable. During the hospital course Ms. Macdonald's diarrhea completely resolved. She was started on GI soft diet and she was able to tolerate diet without any complication. Her hydration status also remarkably improved. This morning Ms. Macdonald refers to be feeling a whole lot better. She has no more having diarrhea. She is tolerating her diet. She thinks she is ready to go back home. She will be discharged in stable condition. All the discharge instructions have been discussed with her she voiced understanding. Ms. Macdonald is supposed to follow up with her primary care doctor and she has also been advised with medication compliance. Discharge time is 35 minutes cc: MD Kaila Silverman MD
--- NOTE | 2019-01-14 07:47 | PROVIDER DOCUMENTATION ---
This chart was entered by Michelle Alvarez Scribe, acting as scribe for Varghese Webster MD. HPI-Abdominal Pain/GI Problem - General Chief Complaint: Abdominal Pain Stated Complaint: ABD PAIN Time Seen by Provider: 01/04/19 16:32 Source: patient, EMS Allergies/Adverse Reactions: Patient Allergies Allergy/AdvReac Type Severity Reaction Status Date / Time ibuprofen [From Motrin IB] Allergy DIZZINESS Verified 01/03/19 02:26 meperidine [From Demerol] Allergy ITCHING Verified 01/03/19 02:26 pregabalin [From Lyrica] Allergy Unknown Verified 01/03/19 02:26 Home Medications: Home Medication List Medication Instructions Recorded Confirmed Last Taken Type Metoprolol Tartrate [Lopressor] 100 mg PO BID 05/07/18 01/09/19 12/04/18 07:00 History 100mg Duloxetine [Cymbalta] 30 mg PO DAILY 30 Days #30 cap 12/09/18 01/04/19 Unknown R x Ergocalciferol (Vitamin D2) 50,000 unit PO Q7D #4 cap 12/09/18 01/04/19 Unknown Rx [Vitamin D] Gabapentin [Neurontin] 100 mg PO BID 30 Days #60 cap 12/09/18 01/04/19 Unknown Rx Ondansetron Odt [Zofran Odt] 4 mg PO Q6H PRN PRN #20 tab 01/02/19 01/04/19 Unknown Rx Alprazolam [Xanax] 0.5 mg PO BID 01/04/19 01/04/19 Unknown History Dicyclomine [Bentyl] 10 mg PO TID PRN 01/04/19 01/04/19 Unknown History Donepezil HCl [Aricept] 10 mg PO QHS 01/04/19 01/04/19 Unknown History Tramadol [Ultram] 50 mg PO QHS tab 01/09/19 Unknown Rx - History of Present Illness-ABD Nature of Presenting Problems: 78 yowf presents to the ed for the 3rd time in 3 days. pt c/o abdominal pain RUQ RLQ and suprapubic. pt sts n/vx4/dx6 since this am. pt lives alone and sts decreased appetite Abdominal Pain Onset Location: reports: RUQ, RLQ Pain Radiation: reports: other (suprapubic) Quality of Pain: reports: aching Severity in ED: reports: mild Onset/Duration: reports: 3 days ago Timing: reports: still present, intermittent Activities at Onset: reports: light activity Exposure to sick contacts?: No Modifying Factors: improves with: nothing. worse with: eating Associated Symptoms: reports: diarrhea, fatigue, nausea, vomiting. denies: back/neck pain, chest pain, shortness of breath Last BM: this afternoon Dark Stools Present?: reports: none noticed Rectal Bleeding: reports: none # of Diarrhea Episodes: 6 (yellow in color) Rectal Pain: reports: none # of Vomiting Episodes: 4 Emesis Description: reports: none Bruising or Bleeding Gums?: No Similar Symptoms Previously?: Yes Recently seen or treated by another doctor?: Yes (has been to ed last 2 days) Review of Systems - Adult - REVIEW OF SYSTEMS - ADULT Constitutional: reports: ania. denies: chills, fever Eyes: reports: no symptoms reported Ears, Nose, Mouth & Throat: reports: no symptoms reported Cardiovascular: denies: chest pain, palpitations Respiratory: denies: cough, shortness of breath, wheezing Gastrointestinal: reports: see HPI, abdominal pain, diarrhea, nausea, vomiting Genitourinary: denies: dysuria, flank pain Musculoskeletal: denies: back pain, neck pain Integumentary: reports: no symptoms reported Neurological: reports: no symptoms reported Psychiatric: reports: no symptoms reported Endocrine: reports: no symptoms reported Hematologic/Lymphatic: reports: no symptoms reported Allergic/Immunologic: reports: no symptoms reported All Other Systems: Reviewed and Negative Past History - Adult - PAST MEDICAL HISTORY-ADULT Review of Records: reports: Nursing Assessment Review, Medications Reviewed Major Childhood Illnesses: reports: denies history Cardiovascular: reports: denies history, HTN Respiratory: reports: denies history Gastrointestinal: reports: denies history Obstetrical/Gynecological: reports: denies history Genitourinary: reports: denies history Musculoskeletal: reports: denies history, arthritis Neurological: reports: denies history Psychiatric: reports: anxiety, depression Endocrine/Immune: reports: denies history, thyroid disorder Other Conditions: reports: denies history - PRIOR SURGERIES/PROCEDURES Surgical/Procedure History: reports: cholecystectomy, hysterectomy, orthopedic (extremity) (L arm, L shoulder) - IMMUNIZATION STATUS Childhood Immunizations: See Nurse Assessment Flu Vaccine: See Nurse Assessment - FAMILY HISTORY Family History: reviewed, not pertinent - SOCIAL HISTORY Smoking: quit greater than 1 year Substance Use: denies Living Situation: family Physical Exam-General - PHYSICAL EXAM-ADULT Initial Vital Signs Reviewed: Yes - CONSTITUTIONAL General Appearance: appears well, alert, no apparent distress - EYES Eyes: PERRL/EOMI, pink conjunctivae - HEAD, EARS, NOSE, MOUTH & THROAT HENMT: dental decay. negative: moist mucous membranes (dry oral) - NECK Neck: non-tender, full range of motion, supple, normal inspection - RESPIRATORY Respiratory: chest non-tender, lungs clear, normal breath sounds - CARDIOVASCULAR Cardiovascular: normal peripheral pulses, regular rate, rhythm - GASTROINTESTINAL (ABDOMEN) Abdominal Exam: normal bowel sounds, soft, no organomegaly, no pulsatile mass, abnormal bowel sounds (hyper), tenderness. negative: distended, guarding, rigid, rebound - LYMPHATIC Lymphatic: no adenopathy - MUSCULOSKELETAL Back Exam: normal inspection, no CVA tenderness, no vertebral tenderness Extremity: normal range of motion, non-tender, normal gait, normal inspection, no pedal edema, no calf tenderness, normal capillary refill, pelvis stable - SKIN Integumentary: normal color, normal turgor, warm/dry - NEUROLOGIC Neurologic: grossly normal, no motor/sensory deficits - PSYCHIATRIC Psych/Mental Status: normal mood/affect, normal thought content, normal thought process, oriented x 3 Progress - PLAN OF CARE/RESULTS Progress/Plan/Lab Results: Vital Signs - 8 hr 01/04/19 16:25 Temperature 98.5 F Pulse Rate 65 Respiratory Rate 16 Blood Pressure 199/81 O2 Sat by Pulse Oximetry 99 Orders Category Date Time Status Saline Loc DIRECTED Care 01/04/19 16:34 Active NPO Diet 01/04/19 16:34 Active AMYLASE [CHEM] Stat Lab 01/04/19 16:44 Ordered CBC WITH ELECTRONIC DIFF [HEME] Stat Lab 01/04/19 16:44 Ordered COMPREHENSIVE METABOLIC PANEL [CHEM] Stat Lab 01/04/19 16:44 Ordered LIPASE [CHEM] Stat Lab 01/04/19 16:44 Ordered STOOL CULTURE [RM] Stat Lab 01/04/19 16:56 Uncollected 0.9% Sodium Chloride Inj [Ns] 1,000 ml Med 01/04/19 16:44 Active IV 999 mls/hr Promethazine [Phenergan] Med 01/04/19 16:44 Discontinued 25 mg IV NOW ONE Sodium Chloride 0.9% Med 01/04/19 16:44 Discontinued 10 ml INJ NOW ONE Result Diagrams: 01/07/19 07:00 01/08/19 07:05 - REASSESSMENT Reassessment #1 Time Reassessed: 17:23 (resting in bed) Status: improving Reassessment #2 Time Reassessed: 18:17 Status: unchanged (pt reports persisent infraumbilical/suprapubic pain. hypoNa and k+ noted. no stool as yet. will consult for admission.) Departure - Departure Date of Disposition Decision: 01/04/19 Time of Disposition Decision: 18:30 DIAGNOSIS: Gastroenteritis, Hypokalemia Disposition: ADMITTED INPATIENT 09 Certified Medical Emergency: Emergent Condition: Good - Critical Care Note This patient required my direct & personal management of CC.: No Attestation - Physician/ MARIA L Attestation Patient care was provided by Advanced Practice Provider:: No The physician spent face to face time with patient:: Yes Advanced Practice Provider documentation review:: Supervising physician onsite and consulted in the evaluation and care of this patient. The physician did have a face to face encounter with the patient. This chart was documented by the indicated scribe, (Michelle Alvarez Scribe) and accurately reflects the services I performed and decisions made by me, Varghese Webster MD, as attested by the provider's signature.
== END 2019-01-09 13:58 | disposition home or self-care (01) | DRG 392 ==
LOC: SUPCPDRO → ED 15:58 → SUATTDRO 22:03 → 3N 22:03 → OBSVTOIN 22:03 → INTOOBSV 22:03
PROVIDERS: ATTEND Internal Medicine
CPT/HCPCS: 71020; 71046; 74177; 80048; 80053; 81001; 82150; 82438; 82533; 82656; 83630; 83690; 83735; 83986; 84100; 84302; 84484; 84999; 85014; 85018; 85025; 86141; 87045; 87046; 87088; 87177; 87205; 87275; 87276; 87324; 87449; 87804; 88313; 89055; 90471; 90732; 93005; 96361; 96372; 96374; 96375; 96376; 99284; 99285; A9270; C9113; G0009; G0378; J0360; J1644; J2270; J2405; J2550; J3475; J3480; J7030; J7050; Q9967; S0164